=== PATIENT | male | born 1970 | race Caucasian/White ===

== ENCOUNTER → 2020-04-07 | Outpatient (CLI) | payer BC ==
--- NOTE | 2020-04-07 11:59 | Diagnostic Imaging Report ---
INDICATION: Chest pain. TECHNIQUE: PA and lateral views of the chest were obtained. COMPARISON: No previous study is available for comparison at this time. FINDINGS: the heart size and pulmonary vasculature are within normal limits. The lungs are clear bilaterally. IMPRESSION: Unremarkable chest. Dictated by: Dictated on workstation # [id number]
== END ==
LOC: RAD 11:42
DX: R07.9 Chest pain, unspecified (principal)
CPT/HCPCS: 71046

== ENCOUNTER 2020-09-24 05:44 | Outpatient (RCR) | payer BC ==
[~2020-09-24] VITALS: Ht 185.5 cm; Wt 102.3 kg
[~2020-09-24 05:44] MED LIST: MELO15TA39 PO; OMEP40CA27 PO
== END 2020-09-24 09:34 | disposition home or self-care (01) ==
LOC: PREOP 05:44
PROVIDERS: ATTEND Surgery
DX: Z01.818 Encounter for other preprocedural examination (principal); Z12.11 Encounter for screening for malignant neoplasm of colon; K21.9 Gastro-esophageal reflux disease without esophagitis; Z20.828 Contact with and (suspected) exposure to other viral communicable diseases
CPT/HCPCS: 87635

== ENCOUNTER 2020-09-28 08:52 | Day surgery (SDC) | payer BC ==
[~2020-09-28] VITALS: Ht 185.5 cm; Wt 1023.3 kg
[2020-09-28] VITALS (7 sets, daily range): BP systolic 111–138; BP diastolic 71–98
[2020-09-28] MEDS ORDERED: LACTATED RINGERS 1,000 ML IV ONE (09:00)
[2020-09-28] MEDS ORDERED: LACTATED RINGERS 1,000 ML IV STA (09:08)
[2020-09-28] MEDS ORDERED: HURRICAINE EXT TUBE (BENZOCAINE) XX PRN (09:15)
[2020-09-28] MEDS ORDERED: PROPOFOL INJECTION 50 ML IV ONE (09:45)
[2020-09-28] MEDS ORDERED: MIDAZOLAM 2 MG/2 ML (VERSED) VIAL ONE (09:45)
--- NOTE | 2020-09-28 09:47 | Progress Note-Pre Operative ---
Pre-Operative Progress Note H&P Reviewed The H&P was reviewed, patient examined and no changes noted. Date Seen by Provider: Sep 28, 2020 Time Seen by Provider: 09:46 Date H&P Reviewed: Sep 28, 2020 Time H&P Reviewed: 09:47 Pre-Operative Diagnosis: gerd, screening colonoscopy SNEHA CHIRINOS DO Sep 28, 2020 09:47
[2020-09-28] MEDS ORDERED: HURRICAINE EXT TUBE (BENZOCAINE) ONE ×2 (09:56→10:16)
--- NOTE | 2020-09-28 10:25 | Progress Note-Post Operative ---
Post-Operative Progess Note Surgeon (s)/Braiding Machine Tender (s) Surgeon SNEHA CHIRINOS DO Braiding Machine Tender: na Pre-Operative Diagnosis gerd, screening colonoscopy Post-Operative Diagnosis reactive gastropathy, minimal diverticulosis Procedure & Operative Findings Date of Procedure 09/28/20 Procedure Performed/Findings egd c biopsies, colonoscopy Anesthesia Type per hearing aid consultant Estimated Blood Loss Estimated blood loss (mL): na Specimens/Packing Specimens Removed antrum, ge SNEHA CHIRINOS DO Sep 28, 2020 10:25
--- NOTE | 2020-09-28 10:28 | Discharge Inst-Simple/Standard ---
Discharge Inst-Standard Patient Instructions/Follow Up Plan of Care/Instructions/FU: 2-3 weeks Denisa Activity as Tolerated: Yes Discharge Diet: Regular Diet SNEHA CHIRINOS DO Sep 28, 2020 10:28
--- NOTE | 2020-09-28 12:29 | OPERATIVE REPORT ---
DATE OF SERVICE: 09/28/2020 PREOPERATIVE DIAGNOSES: Gastroesophageal reflux disease, screening colonoscopy. POSTOPERATIVE DIAGNOSES: Reactive gastropathy, minimal diverticulosis. PROCEDURE: EGD with biopsies, colonoscopy. SURGEON: Sneha Crawley DO ANESTHESIA: Per CLOSED CIRCUIT SCREEN WATCHER. ESTIMATED BLOOD LOSS: None. COMPLICATIONS: None. SPECIMENS: Antrum, GE junction. INDICATIONS: The patient is a 50-year-old male needing screening colonoscopy and has reflux symptoms. He understands risks and benefits of procedure and wished to proceed with procedure. Consent was signed in the chart. DESCRIPTION OF PROCEDURE: The patient was taken to the endoscopy suite, placed in left lateral recumbent position. Timeout was performed. Scope was inserted in mouth, down the esophagus, stomach and into the duodenum without difficulty. There were no polyps, masses or ulcerations within the duodenum. Scope was then slowly retracted back into the stomach, which had some slight erythematous changes consistent with reactive gastropathy. Biopsy of the antrum was obtained. Scope was retroflexed noting no other pathology. Scope was returned to its normal position, slowly withdrawn to the distal esophagus. No polyps, masses or ulcerations. Biopsy of the GE junction was obtained. Scope was then slowly retracted back to completely remove, noting no other pathology. Digital rectal exam was performed. There were no palpable polyps, masses or ulcerations. Scope was inserted in the rectum, advanced all the way to cecum with minimal difficulty. Prep was adequate. Scope was then slowly retracted back. There were no polyps, masses or ulcerations within the cecum, ascending, transverse, descending and sigmoid colon, minimal amount of diverticulosis within the sigmoid colon. Scope was then continuously retracted back into the rectum, where it was also retroflexed noting no other pathology. Scope was returned to its normal position, slowly withdrawn until completely removed. The patient tolerated procedure well without any complications and taken to recovery room in stable condition. RECOMMENDATIONS: The patient will need repeat colonoscopy in 10 years unless family history of colon cancer, which then be 5 years. Any issues before that in terms of a change in bowel habits, blood in stool or any other concerning GI symptoms should be reevaluated at that time. The patient to follow up on biopsies of the stomach. We will continue on current medications. Job ID: [id number] DocumentID: [id number] Dictated Date: 09/28/2020 10:30:44 Head Of Research & Insights Date: 09/28/2020 12:29:19 Dictated By: SNEHA CRAWLEY DO
--- NOTE | 2020-09-28 14:50 | Anesthesia-General Post-Op ---
MAC Patient Condition Mental Status/LOC: Same as Preop Cardiovascular: Satisfactory Nausea/Vomiting: Absent Respiratory: Satisfactory Pain: Controlled Complications: Absent Post Op Complications Complications None Follow Up Care/Instructions Patient Instructions None needed. Anesthesiology Discharge Order Discharge Order Patient is doing well, no complaints, stable vital signs, no apparent adverse anesthesia problems. No complications reported per nursing. JOHN CHARLES CRNA Sep 28, 2020 14:50
== END 2020-09-28 11:10 | disposition home or self-care (01) ==
LOC: ENDO 08:52
PROVIDERS: ATTEND Surgery
DX: Z12.11 Encounter for screening for malignant neoplasm of colon (principal); K57.30 Diverticulosis of large intestine without perforation or abscess without bleeding; K29.50 Unspecified chronic gastritis without bleeding; K21.9 Gastro-esophageal reflux disease without esophagitis; K31.89 Other diseases of stomach and duodenum; M19.90 Unspecified osteoarthritis, unspecified site; Z79.899 Other long term (current) drug therapy
CPT/HCPCS: 88305

== ENCOUNTER → 2023-06-04 | Outpatient (CLI) | payer BC ==
[~2023-06-04] MED LIST changes: +CATHETER FLUSH 10 ML SYR IV PRN; +HOLD METFORMIN - RECEIVED CONTRAST 20 ML VIAL IV SCH; +IOHEXOL 350 MG/ML 100 ML (OMNIPAQUE 350) VIAL IV ONE; +NS 100 ML (IVPB) BAG IV ONE; -OMEP40CA27 PO; +OMEP40CA6 PO
--- NOTE | 2023-06-04 08:25 | Diagnostic Imaging Report ---
PROCEDURE: CT abdomen and pelvis with contrast. TECHNIQUE: Multiple contiguous axial images were obtained through the abdomen and pelvis after administration of intravenous contrast. Auto Exposure Controls were utilized during the CT exam to meet ALARA standards for radiation dose reduction. All CT scans use one or more of the following dose optimizing techniques: automated exposure control, MA and/or KvP adjustment based on patient size and exam type or iterative reconstruction. INDICATION: Groin pain, R10.31 COMPARISON: None available FINDINGS: Minimal bibasilar atelectasis. The liver and spleen are unremarkable. The adrenal glands are unremarkable. The pancreas is unremarkable. Small nonobstructing right renal calculi. The right kidney is otherwise unremarkable. Central hypodensities are identified within the left kidney. No definite obstructing calculus. No hydroureter. No aneurysmal dilatation of the abdominal aorta. Tiny fat-containing umbilical hernia. The appendix is unremarkable. The urinary bladder is unremarkable. Mild prostatic calcifications. Mild colonic diverticulosis without CT evidence of diverticulitis. No bowel obstruction or pneumatosis. Small fat density mass is identified within a loop of small bowel within the midline pelvis, consistent with a small lipoma. This is nonobstructing. No significant inguinal hernia. No significant adenopathy, free air, or free fluid in abdomen or pelvis. Scattered osseous degenerative changes, particularly at L5/S1. No acute osseous abnormality. IMPRESSION: Small nonobstructing right renal calculi. Branching hypodensities within the central left kidney without hydroureter or obstructing calculus. This is favored to relate to peripelvic cysts, though mild hydronephrosis not totally excluded though felt less likely. Mild colonic diverticulosis without CT evidence of diverticulitis. Dictated by: Dictated on workstation # [id number]
== END ==
LOC: RAD 07:18
PROVIDERS: ATTEND Nurse Practitioner Family
DX: N20.0 Calculus of kidney (principal)
CPT/HCPCS: 74177